=== PATIENT | female | born 1990 | race Two or more races ===

== ENCOUNTER 2018-09-30 21:41 | Emergency (ER) | payer MEDICAID ==
[2018-09-30] MEDS ORDERED: Sodium Chloride 0.9% 1,000 ML IV ONE (22:10)
--- NOTE | 2018-09-30 22:16 | ED Physician Chart ---
ED Chief Complaint/HPI - Patient Information Date Seen:: 09/30/18 Time Seen:: 22:05 Chief Complaint:: shortness of breath and generalized weakness History of Present Illness:: Patient developed generalized weakness at 5 PM today and shortness of breath 1 hour ago. Patient started new diet 3 days ago but states she is drinking a lot of fluids. She developed chills and rhinorrhea tonight. No recent cough. No vomiting or diarrhea. She did not take her temperature. She received influenza vaccination this season. Patient has had cold sores for last 2 days. Allergies:: Allergies Allergy/AdvReac Type Severity Reaction Status Date / Time No Known Allergies Allergy Verified 09/30/18 21:49 Vitals:: Vital Signs - 8 hr 09/30/18 21:45 Temp 97.9 F HR 120 RR 20 BP 149/90 O2 Sat % 99 Historian:: Patient Review:: Nurse's Note Reviewed ED Review of Systems - Review of Systems General/Constitutional: No fever, Chills Skin: No skin lesions Head: No headache Eyes: No loss of vision ENT: No earache, Nasal drainage Neck: No neck pain Cardio Vascular: No chest pain, No palpitations Pulmonary: SOB, No cough GI: No nausea, No vomiting, No diarrhea G/U: No dysuria Musculoskeletal: No bone or joint pain Endocrine: No polyuria Psychiatric: No prior psych history Hematopoietic: No bruising Allergic/Immuno: No urticaria Neurological: No syncope, Weakness ED Past Medical History - Past Medical History Past Medical History: No significant medical hx Family History: Heart disease, Diabetes Melitus, HTN Social History: Non Smoker, No Alcohol Surgical History: Psychiatricy History: None Family Medical History - Family Member Mother History Unknown: Yes ED Physical Exam - Physical Examination General/Constitutional: Awake, Well-developed, well-nourished, Alert, No distress, GCS 15, Non-toxic appearing, Ambulatory Head: Atraumatic Eyes: Lids, conjuctiva normal, PERRL, EOMI Skin: Nl inspection, No rash, No skin lesions, No ecchymosis, Well hydrated, No lymphadenopathy ENMT: External ears, nose nl, Nasal exam nl Other ENMT comments:: barely perceptible small flat vesicles lips Neck: Nontender, Full ROM w/o pain, No JVD, No nuchal rigidity, No bruit, No mass, No stridor Respiratory: Nl effort/Exclusion, Clear to Auscultation, No Wheeze/Rhonchi/Rales Cardio Vascular: RRR, No murmur, gallop, rubs, NL S1 S2 GI: No tenderness/rebounding/guarding, No organomegaly, No hernia, Normal BS's, Nondistended, No mass/bruits, No McBurney tenderness : No CVA tenderness Extremities: No tenderness or effusion, Full ROM, normal strength in all extremities, No edema, Normal digits & nails Neuro/Psych: Alert/oriented, DTR's symmetric, Normal sensory exam, Normal motor strength, Judgement/insight normal, Mood normal, Normal gait, No focal deficits Misc: Normal back, No paraspinal tenderness ED Labs/Radiology/EKG Results - Lab Results Results: Laboratory Results WBC 8.5 Th/cmm (4.8-10.8) 09/30/18 22:20 RBC 4.87 Mil/cmm (3.80-5.10) 09/30/18 22:20 Hgb 12.6 gm/dL (12-16) 09/30/18 22:20 Hct 37.0 % (41.0-60) L 09/30/18 22:20 MCV 76.0 fl (81-100) L 09/30/18 22:20 MCH 25.9 pg (27.0-31.0) L 09/30/18 22:20 MCHC Differential 34.0 pg (28.0-36.0) 09/30/18 22:20 RDW 14.6 % (11.5-20.0) 09/30/18 22:20 Plt Count 290 Th/cmm (150-400) 09/30/18 22:20 MPV 8.0 fl 09/30/18 22:20 Neutrophils % 81.7 % (40.0-80.0) H 09/30/18 22:20 Lymphocytes % 13.7 % (20.0-50.0) L 09/30/18 22:20 Monocytes % 3.7 % (2.0-10.0) 09/30/18 22:20 Eosinophils % 0.7 % (0.0-5.0) 09/30/18 22:20 Basophils % 0.2 % (0.0-2.0) 09/30/18 22:20 Sodium 135 mEq/L (136-145) L 09/30/18 22:20 Potassium 3.6 mEq/L (3.5-5.1) 09/30/18 22:20 Chloride 102 mEq/L (98-107) 09/30/18 22:20 Carbon Dioxide 23.0 mEq/L (21.0-31.0) 09/30/18 22:20 Anion Gap 13.6 (7.0-16.0) 09/30/18 22:20 BUN 11 mg/dL (7-25) 09/30/18 22:20 Creatinine 0.8 mg/dL (0.6-1.2) 09/30/18 22:20 Est GFR ( Amer) > 60.0 ml/min (>90) 09/30/18 22:20 Est GFR (Non-Af Amer) > 60.0 ml/min 09/30/18 22:20 BUN/Creatinine Ratio 13.8 09/30/18 22:20 Glucose 111 mg/dL (70-105) H 09/30/18 22:20 Calcium 9.0 mg/dL (8.6-10.3) 09/30/18 22:20 Magnesium 1.9 mg/dL (1.9-2.7) 09/30/18 22:20 Urine Source MIDSTREAM 09/30/18 21:45 Urine Color YELLOW 09/30/18 21:45 Urine Clarity CLEAR (CLEAR) 09/30/18 21:45 Urine pH 5.5 (4.6 - 8.0) 09/30/18 21:45 Ur Specific Hart 1.010 (1.005-1.030) 09/30/18 21:45 Urine Protein NEGATIVE mg/dL (NEGATIVE) 09/30/18 21:45 Urine Glucose (UA) NEGATIVE mg/dL (NEGATIVE) 09/30/18 21:45 Urine Ketones NEGATIVE mg/dL (NEGATIVE) 09/30/18 21:45 Urine Blood NEGATIVE (NEGATIVE) 09/30/18 21:45 Urine Nitrate NEGATIVE (NEGATIVE) 09/30/18 21:45 Urine Bilirubin NEGATIVE (NEGATIVE) 09/30/18 21:45 Urine Urobilinogen 0.2 E.U./dL (0.2 - 1.0) 09/30/18 21:45 Ur Leukocyte Esterase NEGATIVE (NEGATIVE) 09/30/18 21:45 Urine RBC NONE SEEN /hpf (0-5) 09/30/18 21:45 Urine WBC NONE SEEN /hpf (0-5) 09/30/18 21:45 Ur Epithelial Cells FEW /lpf (FEW) 09/30/18 21:45 Urine Bacteria NONE SEEN /hpf (NONE SEEN) 09/30/18 21:45 Urine Test NEGATIVE 09/30/18 21:45 ED Septic Shock - . Is Septic Shock (SBP<90, OR Lactate>4 mmol\L) present?: No - <6hrs of presentation: Vital Signs: Vital Signs - 8 hr 09/30/18 21:45 Temp 97.9 F HR 120 RR 20 BP 149/90 O2 Sat % 99 ED Reassessment (Disposition) - Reassessment Reassessment Condition:: Improved - Diagnosis Diagnosis:: Influenza B; oral Herpes simplex I - Aftercare/Follow up Instructions Aftercare/Follow-Up Instructions:: Refer to Discharge Instructions Medication Prescribed:: Tamiflu 75 mg twice a day for 5 days; acyclovir 400 mg 4 times a day for 1 week - Patient Disposition Discharge/Transfer:: Home Condition at Disposition:: Stable, Unchanged
[2018-09-30 22:31] LABS: URINE SOURCE MIDSTREAM
[2018-09-30 22:35] LABS: % BASOPHILS 0.2 % (0.0-2.0); % EOSINOPHILS 0.7 % (0.0-5.0); % LYMPHOCYTES 13.7 % (20.0-50.0); % MONOCYTES 3.7 % (2.0-10.0); % NEUTROPHILS 81.7 % (40.0-80.0); EOSINOPHILE ABSOLUTE 0.1 Th/cmm (0.1-0.4); HEMOGLOBIN 12.6 gm/dL (12-16); LYMPHOCYTE ABSOLUTE 1.2 Th/cmm (1.5-3.0); MEAN CORPUSCULAR HEMOGLOBIN 25.9 pg (27.0-31.0); MONOCYTE ABSOLUTE 0.3 Th/cmm (0.3-1.0); NEUTROPHILE ABSOLUTE 6.9 Th/cmm (1.8-8.0); PLATELET COUNT 290 Th/cmm (150-400); RED BLOOD COUNT 4.87 Mil/cmm (3.80-5.10); RED CELL DISTRIBUTION WIDTH 14.6 % (11.5-20.0); WHITE BLOOD COUNT 8.5 Th/cmm (4.8-10.8)
[2018-09-30 22:36] LABS: URINE BILIRUBIN NEGATIVE (NEGATIVE); URINE BLOOD NEGATIVE (NEGATIVE); URINE GLUCOSE (UA) NEGATIVE (NEGATIVE); URINE KETONE NEGATIVE (NEGATIVE); URINE LEUKOCYTE ESTERASE NEGATIVE (NEGATIVE); URINE NITRATE NEGATIVE (NEGATIVE); URINE PH 5.5 (4.6 - 8.0); URINE PROTEIN NEGATIVE (NEGATIVE); URINE UROBILINOGEN 0.2 E.U./dL (0.2 - 1.0)
[2018-09-30 22:38] LABS: URINE CLARITY CLEAR (CLEAR); URINE COLOR YELLOW; URINE MICROSCOPIC INDICATED? YES
[2018-09-30 22:43] LABS: ANION GAP 13.6 (7.0-16.0); BUN - UREA NITROGEN 11 mg/dL (7-25); CHLORIDE 102 mEq/L (98-107); CREATININE - SERUM 0.8 mg/dL (0.6-1.2); GFR AFRICAN-AMERICAN > 60.0 ml/min (>90); GFR NON AFRICAN-AMERICAN > 60.0 ml/min; GLUCOSE 111 mg/dL (70-105); MAGNESIUM 1.9 mg/dL (1.9-2.7); POTASSIUM SERUM 3.6 mEq/L (3.5-5.1); SODIUM SERUM 135 mEq/L (136-145)
[2018-09-30 22:52] LABS: URINE BACTERIA NONE SEEN /hpf (NONE SEEN); URINE EPITHELIAL CELLS FEW /lpf (FEW); URINE RBC NONE SEEN /hpf (0-5); URINE WBC NONE SEEN /hpf (0-5)
[2018-09-30] MEDS ORDERED: Acetaminophen 500 MG TAB ONE (23:24)
[2018-09-30 23:47] LABS: INF A SCREEN NEG FOR INF A
[2018-09-30 23:48] LABS: INF B SCREEN POS FOR INF B
== END 2018-10-01 00:30 | disposition home or self-care (01) ==
LOC: ER 21:41
DX: J10.1 Influenza due to other identified influenza virus with other respiratory manifestations (principal); B00.9 Herpesviral infection, unspecified
CPT/HCPCS: 99283; 96374; 36415; 87804 ×2; 85025; 81001; 81025; 83735; 80048; J1885; J7030; Z7502; Z7610